=== PATIENT | female | born 1965 | race Caucasian/White ===

== ENCOUNTER → 2023-12-12 16:58 | Outpatient (REF) | payer OTHER, SELFPAY | LOC: WDC 16:58 | PROVIDERS: ATTENDING PHYSICIAN Registered Nurse; FAMILY PHYSICIAN Family Medicine | DX: Z12.31 Encounter for screening mammogram for malignant neoplasm of breast (principal) | CPT/HCPCS: 77063; 77067 ==

== ENCOUNTER → 2024-05-15 07:01 | Outpatient (REF) | payer OTHER, SELFPAY | LOC: HWRAD 07:01 | PROVIDERS: ATTENDING PHYSICIAN Family Medicine | DX: R07.0 Pain in throat (principal) | CPT/HCPCS: 76536 ==

== ENCOUNTER → 2024-12-15 17:00 | Outpatient (REF) | payer OTHER, SELFPAY | LOC: WDC 17:00 | PROVIDERS: ATTENDING PHYSICIAN Family Medicine | DX: Z12.31 Encounter for screening mammogram for malignant neoplasm of breast (principal) | CPT/HCPCS: 77063; 77067 ==

== ENCOUNTER 2025-01-09 19:56 | Emergency (ER) | payer OTHER, SELFPAY ==
[2025-01-09 19:58] VITALS: BP 97/57
[2025-01-09 20:32] LABS: % Basophils 0.8 % (0-2); % Eosinophils 1.4 % (0-6); % Immature Granulocytes 0.2 % (0-0.5); % Lymphocytes 22.5 % (20.5-51.1); % Monocytes 7.6 % (1.7-9.3); % Neutrophils 67.5 % (42.2-75.2); Absolute Basophils 0.1 10^3/uL (0-0.2); Absolute Eosinophils 0.1 10^3/uL (0-0.7); Absolute Lymphocytes 1.4 10^3/uL (1.2-3.4); Absolute Monocytes 0.5 10^3/uL (0.1-0.6); Absolute Neutrophils 4.2 10^3/uL (1.4-6.5); Hematocrit 37.4 % (37.0-47.0); Hemoglobin 13.5 g/dL (12.0-16.0); Mean Corp Hgb Conc. 36.1 g/dL (33.0-37.0); Mean Corpuscular Hgb 30.4 pg (27.0-31.0); Mean Corpuscular Volume 84.2 fL (81.0-99.0); Mean Platelet Volume 9.6 fL (7.4-10.4); Nucleated Red Blood Cells % 0 %; Platelet Count 224 10^3/uL (130-400); Red Blood Cell Count 4.44 10^6/uL (4.20-5.40); Red Cell Dist. Width 12.7 % (11.5-14.5); White Blood Cell Count 6.3 10^3/uL (4.8-10.8)
[2025-01-09 20:46] LABS: ALT (SGPT) 25 U/L (0-35); AST (SGOT) 31 U/L (14-36); Albumin 4.7 g/dl (3.5-5.0); Alkaline Phosphatase 62 U/L (38-126); Blood Urea Nitrogen 15 mg/dl (7-17); Calcium 9.5 mg/dl (8.4-10.2); Carbon Dioxide 26 mmol/L (22-30); Chloride 101 mmol/L (98-107); Glucose 226 mg/dl (70-99); Potassium 3.6 mmol/L (3.5-5.1); Sodium 134 mmol/L (135-145); Total Bilirubin 0.8 mg/dl (0.2-1.3); eGFR > 60.00
[2025-01-09 21:56] VITALS: BP 93/59
[2025-01-09 22:03] VITALS: BMI 20.5
--- NOTE | 2025-01-09 22:46 | ED.GENMED ---
History of Present Illness
General
Chief Complaint: Anxiety
Source: patient
Exam Limitations: none
Time Seen by Provider: 01/09/25 22:32
History of Present Illness
History of Present Illness:
59-year-old female with history of bradycardia requiring pacemaker placement presents with episode that happened this evening. She was sitting eating a tuna wrap and developed lightheadedness. She let herself down to the ground. She started to
hyperventilate and she noticed numbness in her extremities. She states she is under a lot of stress currently. She is on Eliquis. She denies headache. She states she took clonazepam at home. Since waiting in the waiting room to be seen she is
feeling somewhat better. She denies any further lightheadedness. No chest pain associated with this episode. No other complaints at this time
Past History
Past History
ED Past Medical History: HTN
ED Past Surgical History: , Orthopedic and Other
Patient has exhibited threatening behavior?: No
PSI?: No
Social History
Personal:
Living: with family
Employment: Employed
Phy Exam
Physical Exam
Physical Exam:
General: Well-appearing female no acute respiratory distress
HEENT: Normocephalic atraumatic heart: Regular rate and rhythm
Lungs: Clear no wheeze
Extremities: No cyanosis
Skin is warm no rash
Course
Orders/Labs/Results
Orders:
Orders
01/09/25 20:06
Electrocardiogram (*1) Urgent
Reason for Study: Chest Pain
EKG- Treatment ONCE
01/09/25 20:18
Complete Blood Count/With Diff Urgent
Comprehensive Metabolic Panel Urgent
01/09/25 22:44
Interrogate Pacemaker- Treatment ONCE
0.9% Sodium Chloride 1000 ml [Nss] 1,000 ml IV BOLUS
Abnormal Lab Results
01/09/25
20:18
Sodium 134 L mmol/L
(135-145)
Glucose 226 H mg/dl
(70-99)
01/09/25 20:18
01/09/25 20:18
Vital Signs
Initial and Last Documented VS:
Initial Vital Signs
Temp Pulse Resp BP Pulse Ox
98.2 F 65 20 97/57 96
01/09/25 19:58 01/09/25 19:58 01/09/25 19:58 01/09/25 19:58 01/09/25 19:58
Last Documented Vital Signs
Temp Pulse Resp BP Pulse Ox
98.2 F 62 16 93/59 95
01/09/25 19:58 01/09/25 22:15 01/09/25 22:15 01/09/25 21:56 01/09/25 22:49
MDM/Problems Addressed
Differential Diagnosis Includes:
Patient presents with lightheaded episode with hyperventilating and numbness. Question anxiety attack versus arrhythmia versus anemia. EKG shows an AV dual paced rhythm with a rate of 64
Blood pressures running on the lower side upon triage. Will recheck and administer fluids for persistent hypotension. Hemoglobin is 13.5.
*Pulse Oximetry
SaO2: 95
Oxygen Mode of Delivery: Room air
Patient hypoxic: no
*Critical Care Note
Total Time (30-74mins, 75-104mins- exclusive of procedures): Not Applicable
Update Note
Update Note:
Pacemaker interrogated. No arrhythmias reported. Patient reassured. She was given fluids. I suspect episode tonight was most likely anxiety or panic attack with hyperventilation symptoms. She was hydrated given her slightly low blood pressure
then discharged
ED Attending Note
-
Portions of this chart may have been created with voice recognition software.� Occasional wrong word or��sound alike� substitutions may have occurred due to the inherent limitations of voice recognition software.
Discharge Plan
Departure
Patient Disposition: Home (Routine Discharge)
Date of Disposition: 01/09/25
Time of Disposition: 23:41
Patient with high blood pressure during this ER visit?: No
Discharge Problem:
Anxiety
Prescriptions:
No Action
rosuvastatin 10 MG tablet
10 mg PO DAILY
zolpidem [Ambien CR] 6.25 MG tablet,ext release multiphase
6.25 mg PO HS
Patient Comments:
07/23/2023: last filled 07/02/23, 30 tabs for 30 days from [facility]
diltiazem HCl 240 mg capsule,extended release 24hr
240 mg PO DAILY
indapamide 1.25 mg tablet
1.25 mg PO DAILY
escitalopram oxalate 10 mg tablet
10 mg PO DAILY
clonazepam 0.5 mg tablet,disintegrating
0.5 - 1 mg PO TID PRN (Reason: anxiety/panic attack)
Patient Comments:
07/23/2023: last filled 07/19/23, 30 tabs for 5 days from [facility]
Eliquis 5 mg tablet
5 mg PO BID
metoprolol succinate 25 MG tablet extended release 24 hr
25 mg PO DAILY
lorazepam [Ativan] 1 mg tablet
1 mg PO TID PRN (Reason: alcohol withdrawal) Qty: 10 0RF
Referrals:
NONE,* [Family Provider, Internal Medicine]
Activity Restrictions/Additional Instructions:
Make sure to stay hydrated. Continue current medication regimen. Return if worse otherwise follow-up with your doctor
Interventions
Interventions:
*Risk Screen - Suicide Last Done: 01/09/25 19:58
*General Assessment Last Done: 01/09/25 19:58
*Neglect/Abuse Screening Last Done: 01/09/25 19:58
*ED- Fall Risk Assessment Last Done: 01/09/25 21:54
*ED COVID-19 Vaccine History Last Done: 01/09/25 21:54
ED-Psychological Assessment Last Done: 01/09/25 21:54
Discharge Date and Time
Print Language: MALAY
[2025-01-09 23:00] VITALS: BP 88/61
[2025-01-09] MEDS: NSS 1000 IV (23:12)
[2025-01-10] VITALS: BP 88/61
[2025-01-10 00:16] VITALS: BP 105/73
[2025-01-10 00:25] VITALS: BP 105/73
== END 2025-01-10 00:25 | disposition home or self-care (01) ==
LOC: EMR 19:56
PROVIDERS: Emergency Medicine; EMERGENCY PHYSICIAN Emergency Medicine
DX: F41.9 Anxiety disorder, unspecified (principal); I10 Essential (primary) hypertension; Z95.0 Presence of cardiac pacemaker; Z79.01 Long term (current) use of anticoagulants
CPT/HCPCS: 93288; 99284; 96360; 80053; 85025; 93005